=== PATIENT | male | born 1975 | race Caucasian/White ===

== ENCOUNTER 2024-08-26 08:56 | Emergency (ER) | payer OTHER, SELFPAY ==
--- NOTE | 2024-08-26 08:59 | ED.SKABFB ---
HPI - Skin/Abscess/Foreign Bdy General Chief complaint: Skin/Abscess/Foreign Body Stated complaint: rash Time Seen by Provider: 08/26/24 08:59 Source: patient Mode of arrival: ambulatory Limitations: no limitations History of Present Illness HPI narrative: Lion is a 49-year-old male patient presenting to the clinic today with complaints of a rash x5 days. He reports Thursday night he developed a painful rash to the left anglican and it has spread to the left chin/cheek. Area is painful/burning. Does have vesicular lesions. No visual changes. No rash or lesions noted around the eyes. Does report a headache and some dental pain from the rash. Related Data Home Medications ?Medication ?Instructions ?Recorded ?Confirmed ?Last Taken ?Type dapagliflozin propanediol 10 mg mg 08/26/24 Unknown History tablet (Farxiga) glipizide 10 mg tablet, extended mg PO 08/26/24 Unknown History release 24 hr losartan 100 tablet 08/26/24 Unknown History mg-hydrochlorothiazide 25 mg tablet metformin 500 mg tablet mg 08/26/24 Unknown History tirzepatide 2.5 mg/0.5 mL mg subcut 08/26/24 Unknown History subcutaneous pen injector (Mounjaro) Allergies Allergy/AdvReac Type Severity Reaction Status Date / Time No Known Allergies Allergy Verified 08/26/24 09:16 Review of Systems Review of Systems: Pertinent positives per HPI. Patient denies any fever, chills,headache, visual changes, dizziness, cough, runny nose, sore throat, shortness of breath, chest pain, palpitations, nausea, vomiting, diarrhea, constipation, abdominal pain, or any urinary issues. PMFSH Comments At the time of my signature, I reviewed and agree with the nursing past medical, surgical, social, and family history. There is no relevant family history pertinent to the patient complaint. Exam Narrative: General: Well-developed, well nourished, in no apparent distress Head: Normocephalic, atraumatic. Cardio: Regular rate and rhythm, s1 and s2 normal, no murmur appreciated. Resp: Clear to auscultation bilaterally, no rhonchi, rales, wheezing or rubs. Integumentary: [place], warm, and dry, intact without lesion, red erythematous base rash with vesicular lesions to the left temporal area as well as the left chin/cheek, no rash around the eyes. Area is tender to palpation. Course Course Emergency Course: Portions of this record may have been created with voice recognition software. Level of Care: Express Care Visit Vital Signs Vital signs: Vital Signs Temperature 37.1 C 08/26/24 09:12 Pulse Rate 91 08/26/24 09:12 Respiratory Rate 16 08/26/24 09:12 Blood Pressure 149/90 H 08/26/24 09:12 Pulse Oximetry 96 08/26/24 09:12 Oxygen Delivery Room Air 08/26/24 09:12 Temperature 37.1 C 08/26/24 09:12 Pulse Rate 91 08/26/24 09:12 Respiratory Rate 16 08/26/24 09:12 Blood Pressure 149/90 H 08/26/24 09:12 Pulse Oximetry 96 08/26/24 09:12 Oxygen Delivery Room Air 08/26/24 09:12 Vital signs reviewed MDM - Skin/Abscess/Foreign Bdy MDM Narrative Medical decision making narrative: At the time of visit patient is resting comfortably on the exam table. Patient appears to be nontoxic. Plan: I suspect patient has shingles. Prescription for acyclovir and lidocaine cream was sent to the pharmacy. Supportive measures were discussed with the patient and they voiced understanding discharge instructions and agrees to treatment plan. Return precautions reviewed Differential Diagnosis Differential diagnosis: Likely abscess of skin or subcutaneous tissue, viral exanthem, dermatophytosis, urticaria, herpes zoster, allergic reaction to drug, cellulitis, eczema, insect bites, impetigo and contact dermatitis Discharge Plan Discharge Clinical Impression: Herpes zoster Qualifiers: Herpes zoster complications: without complications Qualified Code(s): B02.9 - Zoster without complications Patient Disposition: Home, Self-Care Condition: Stable Instructions: Antibiotic Form, Shingles (ED) Additional Instructions: Take acyclovir as prescribed May apply lidocaine ointment to the affected area to help alleviate pain Shingles will be considered contagious until the area is crusted over Avoid being around any person's or any immunocompromised persons. May take Tylenol/ibuprofen as needed for pain Try to keep covered if draining Watch for signs and symptoms of infection-increase in redness, swelling, purulent discharge, fever, or streaking If this develops around your eyes or you have any visual changes you need to go to the emergency room immediately Follow-up with your primary care doctor in 3-5 days if symptoms persist or sooner if they worsen Patient Language: Turkish Prescriptions: New acyclovir 800 mg tablet 800 mg PO Q4H 7 Days Qty: 42 0RF Rx Instructions: while awake; give 5 doses in 24 hours lidocaine 5 % cream 1 applic topical QID PRN (Reason: pain) 7 Days Qty: 30 0RF No Action metformin 500 mg tablet glipizide 10 mg tablet extended release 24hr PO losartan-hydrochlorothiazide 100-25 mg tablet dapagliflozin propanediol [Farxiga] 10 mg tablet Mounjaro 2.5 mg/0.5 mL pen injector SUBCUT Follow-up/Referrals: Rosaura,Reinaldo Irvin M.D. [Primary Care Provider] - Time of Disposition: 09:21 Quality NIHSS Nursing Documentation ED NIHSS nursing documentation: reviewed/agree
[2024-08-26 09:12] VITALS: BP 149/90; PULSE 91; RESP 16; TEMP 37.1; O2SAT 96
--- OUTSIDE RECORDS SUMMARY | 2024-08-26 09:16 | XMS_ITS | Clinical Summary ---
Author Organization [facility] Address [address] [place] [address] Phone Care Team Providers Care Social Staff Worker Name Role Phone Nancy Cabezas Yun FLOOD Primary Care Provider Allergies No known active allergies Medications insulin glargine (LANTUS SOLOSTAR) 100 unit/mL solution for injection Inject 10 Units by subcutaneous injection daily. 15 mL 11 5 Active aspirin (ASPIRIN LOW DOSE) 81 mg Tablet, Delayed Release (E.C.) Take 1 Tab (81 mg) by mouth daily. 30 Tab 11 5 Active Active Problems Problem Noted Date Diagnosed Date Hyperlipidemia 08/11/2014 Diabetes mellitus type 2, un controlled, without complications 08/04/2014 Morbid obesity with BMI of 50.0-59.9, adult 030 09/2014 Family History Medical History Relation Name Comments Diabetes Father Heart Disease Maternal Grandfather CHF Stroke Maternal Grandfather Other Maternal Grandmother dementi a Stroke Maternal Grandmother TIA Other Mother epilepsy Other Paternal Grandfather scleros is Diabetes Paternal Grandmother pre-DM Other Paternal Grandmother emphyse ma, smoker Relation Name Status Comments Father Alive Maternal Grandfather Maternal Grandmother Mother Alive Paternal Grandfather Paternal Grandmother Social History Tobacco Use Types Packs/Day Years Used Date Smoking Tobacco: Former Smokeless Tobacco: Former Comments:very little use in past, social only Alcohol Use Standard Drinks/Week Comments Yes 0 (1 standard drink = 0.6 oz pur e alcohol) 0-10 weekly on heavy Sex and Gender Information Value Date Recorded Sex Assigned at Not on file Legal Sex Male 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 Gender Identity Not on file Sexual Orientation Not on file Last Filed Vital Signs Vital Sign Reading Time Taken Comments Blood Pressure 126/80 08/10/2014 2:34 PM CDT Pulse 76 08/10/2014 2:34 PM CDT Temperature - - Respiratory Rate - - Oxygen Saturation 97% 08/10/2014 2:34 PM CDT Inhaled Oxygen Concentration - - Weight 154.7 kg (341 lb) 10/11/2014 5:21 PM CDT Height 167.6 cm (5' 6 ) 10/11/2014 5:21 PM CDT Body Mass Index 55.04 10/11/2014 5:21 PM CDT Plan of Treatment Health Maintenance Due Date Last Done Comments DTAP/TDAP/TD VACCINES (1 - Tdap) 1993 HEPATITIS B VACCINES (1 of 3 - 19+ 3-dose series) 1993 Pre-Diabetes and Diabetes Screening 08/03/2017 08/03/2014 COLORECTAL SCREENING 2019 Colorectal Cancer Screening 2019 FIT-DNA Q 3 years 2019 FIT/FOBT Q 1 year 2019 Flex Sig/CT Colonography Q 5 years 2019 INFLUENZA VACCINE (#1) 2023 ZOSTER VACCINE (1 of 2) 2024 Preventative Visit- Commercial 06/01/2024 08/03/2014 PNEUMOCOCCAL VACCINE 0-49 YEARS Aged Out No longer eligible based on patient's age to complete this topic Procedures Procedure Name Priority Date/Time Associated Diagnosis Comments HEMOGLOBIN A1C Routine 08/03/2014 4:18 PM TRADE SPECIALIST Morbid obesity with BMI of 50.0-59.9, adult ([facility]) Elevated glucose from Last 3 Months or Most Recently Relevant to Health Maintenance Results * (ABNORMAL) HEMOGLOBIN A1C (08/03/2014 4:18 PM TRADE SPECIALIST) HEMOGLOBIN A1C 12.0(H) 4.1 - 6.1 % of Hgb [facility] EST. AVG GLUCOSE, A1C 298 mg/dL [facility] Comment:Based on the ADAG st udy equation. Blood 08/03/2014 4:18 PM TRADE SPECIALIST 08/03/2014 11:02 PM TRADE SPECIALIST Nancy Cabezas DO CHEMISTRY ORDERABLES Final Result [facility]# [id number] [address] [place] [address] from Last 3 Months or Most Recently Relevant to Health Maintenance Insurance [facility] [id number] Care Teams Social Staff Worker Relationship Specialty [place] [id number] [facility] [address] [place] [id number] PCP - General Family Practice 08/03/14
--- OUTSIDE RECORDS SUMMARY | 2024-08-26 09:16 | XMS_ITS ---
Author Organization [facility] Address [address] [place], [place] [id number] Care Team Providers Care Assistant Maintenance Manager Name Role Phone GLORIA ROWE Primary Care Provider REASON FOR VISIT Mounjaro problems Encounters Encounter Location Date Provider Diagnosis [facility] [address] [place], [place] [id number] 08/10/2024 GLORIA ROWE Plan Of Treatment Next Appt Details Provider Name:GLORIA Negron, 10/14/2024 08:15:00 AM, [address], [address], [place], [place], [id number], Progress Notes * Lion SEQUEIRADOB: [birth year] (49 yo M)Acc No.[id number]:08/10/2024 Patient: Lion BEE :1975 A ge:49 Y S ex:Male Address:[address] [place] [address] * true * Date: Generated for Printi ng/Faxing/eTransmitting on: 0 08/26/2024 09:16 AM CDT
--- OUTSIDE RECORDS SUMMARY | 2024-08-26 09:16 | XMS_ITS ---
Author Organization [facility] Address [address] [facility] [address] [place], [place] [id number] Care Team Providers Care Director Of Emergency Nursing Name Role Phone GLORIA ROWE Primary Care Provider [phone] Encounters Encounter Location Date Provider Diagnosis [place] [id number] [place], [place] [phone] 04/04/2024 GLORIA ROWE Plan Of Treatment Next Appt Details Provider Name:GLORIA Negron, 10/14/2024 08:15:00 AM, [address], [address], [place], [place], [phone], Progress Notes * Lion SEQUEIRADOB: 4 (48 yo M)Acc No.[id number]:04/04/2024 Patient: Lion BEE :1975 A ge:48 Y S ex:Male Address:[address] [place] [address] * true * Date: Generated for Printi ng/Faxing/eTransmitting on: 0 08/26/2024 09:16 AM CDT
--- OUTSIDE RECORDS SUMMARY | 2024-08-26 09:16 | XMS_ITS ---
Author Organization [facility] Address [address] [facility] [address] [place], [place] [id number] Care Team Providers Care Camp Dishwasher Name Role Phone GLORIA KAPLAN Primary Care Provider [phone] Allergies No Known Allergies REASON FOR VISIT 3 month and yearly physical Medications Medication SIG (Take, Route, Frequency, Duration) Notes Start Date End Date Status Losartan Potassium-HCTZ 100-25 MG TAKE 1 TABLET BY MOUTH EVERY DAY FOR 30 DAYS for 90 Active Dapagliflozin Propanediol 10 MG 1 tablet Orally Once a day for 90 days 11/30/2023 08/06/2024 Active Mounjaro 2.5 MG/0.5ML 2.5 mg Subcutaneou s weekly for 30 days 07/15/2024 10/13/2024 Active glipiZIDE ER 10 MG TAKE 1 TABLET BY KVNG TH EVERY DAY WITH BREAKFAST for 90 Active Rosuvastatin Calcium 20 MG TAKE 1 TABLET BY MOUTH EVERY DAY for 90 Active Social History AUDIT-C (Standard) Question Answer Notes Did you have a drink contain ing alcohol in the past year? Yes How often did you have six o r more drinks on one occasion in the past year? Less than monthly (1 point) How many drinks did you have on a typical day when you were drinking in the past year? 3 or 4 drinks (1 point) How often did you have a dri nk containing alcohol in the past year? 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 He has stable housing and a vehicle. He denies tobacco, alcohol, or illicit drug use. Vital Signs Temperature 97.3 degrees Fahrenheit 07/15/19 25 Blood pressure systolic 130 mm Hg 07/15/19 25 Blood pressure diastolic 90 mm Hg 025 Heart Rate 89 /min 07/15/2024 Respiratory Rate 20 /min 07/15/2024 Height 66 in 07/15/2024 Weight 272.8 lbs 07/15/2024 BMI 44.03 kg/m2 07/15/2024 Oximetry 95 % 07/15/2024 Height-cm 167.64 cm 07/15/2024 Weight-kg 123.74 kg 07/15/2024 Encounters Encounter Location Date Provider Diagnosis [facility] [address] [facility] [address] [place], [place] [phone] 07/15/2024 [facility] Annual physical exam Z00.00 ; Type 2 diabetes mellitus without complication, without long-term current use of insulin E11.9 ; Essential (primary) hypertension I10 ; Mixed hyperlipidemia E78.2 and Morbid (severe) obesity due to excess calories E66.01 Assessments Encounter Date Diagnosis (ICD Code) Assessment Notes Treatment Notes Treatment Clinical Notes Section Notes 07/15/2024 Annual physical exam (ICD-10 - Z00.00) The patient will continue the current therapy and is advised on compliance. The patient is advised on improved low calorie, low carbohydrate diet, and exercise with the goal of weight loss, blood pressure improvement, cholesterol improvement, and blood sugar improvement. Will check CBC, BMP, LFTs, Lipid panel, TFTs, and PSA. 07/15/2024 Type 2 diabetes mellitus without complication, without long-term current use of insulin (ICD-10 - E11.9) As above. His diabetes remains poorly controlled and he was intolerant of metformin and ozempic. He will try mounjaro with a slow uptitration of doses. Will check a HgbA1c and urine microalbumin. 07/15/2024 Essential (primary) hypertension (ICD-10 - I10) His blood pressure remains slightly elevated. He will continue the current therapy and is advised on compliance. He is offered and declined intensification of therapy. He is advised on weight loss and exercise. 07/15/2024 Mixed hyperlipidemia (ICD-10 - E78.2) As above. Will check a lipid panel. 07/15/2024 Morbid (severe) obesity due to excess calories (ICD-10 - E66.01) As above. Plan Of Treatment Medication Medication Name Sig Start Date Stop Date Notes Mounjaro 2.5 MG/0.5ML 2.5 mg Subcutaneou s weekly for 30 days 07/15/2024 10/13/2024 Treatment Notes Assessment Notes Annual physical exam The patient will co ntinue the current therapy and is advised on compliance. The patient is advised on improved low calorie, low carbohydrate diet, and exercise with the goal of weight loss, blood pressure improvement, cholesterol improvement, and blood sugar improvement. Will check CBC, BMP, LFTs, Lipid panel, TFTs, and PSA. Type 2 diabetes mellitus wit hout complication, without long-term current use of insulin As above. His diabetes remains poorly controlled and he was intolerant of metformin and ozempic. He will try mounjaro with a slow uptitration of doses. Will check a HgbA1c and urine microalbumin. Essential (primary) hypertension His blo od pressure remains slightly elevated. He will continue the current therapy and is advised on compliance. He is offered and declined intensification of therapy. He is advised on weight loss and exercise. Mixed hyperlipidemia As above. Will chec k a lipid panel. Morbid (severe) obesity due to excess calories As above. Next Appt Details Follow Up: 3 Months, Reason: Provider Name:GLORIA Negron, 10/14/2024 08:15:00 AM, [address] , [place] [address], [place], [place], [id number], Progress Notes * Lion SEQUEIRADOB: [birth year] (49 yo M)Acc No.[id number]:07/15/2024 Progress Notes Patient: Lion BEE Provider: Enoc Kaplan M.D. :1975 A ge:49 Y S ex:Male Date:07/15/2024 Address:[facility] [id number] Subjective: * Chief Complaints: * 3 month and yearly physical * HPI: R outine: Mr. Sequeira is a 49 year old gentleman who presents for a routine follow up. He reports compliance with losartan/hct 100/25 mg daily without side effects. His blood pressure remains improved/borderline elevated today and he does not check it at home. He has diabetes mellitus and his last HgbA1c worsened from 8.0 to 9.7 off O zempic. He has tried and s topped the Ozempic and the metformin due to nausea and diarrhea. He is trying to improve his diet and exercise and his weight is up another 5 pounds. He does not check his blood sugars at home. His last cholesterol level was normal on the c restor and is tolerating it without side effects. * ROS: G en: Good health, No sleep Problems, No fever, 5 pound weight gain, No Fatigue Skin: No rash, No itching HEENT: No headaches, No sinus congestion, No sore throat, No allergies, No hearing changes, No vision changes Respiratory: No cough, No SOB, No wheezing Cardiology: No chest pain, No palpitations, No lower extremity edema, No dizziness GI: No abdominal pain, No nausea, No diarrhea, No blood in the stools, No heartburn : No urinary frequency, No discharge, No dysuria, No hematuria Heme: No abnormal bleeding, No easy bruising, No swollen glands Musculoskeletal: Positive arthritis, No weakness Psych: No anxiety, No depression Colonoscopy: 07/16/23 - Negative with the plan to repeat after 10 years. * Medical History: * Surgical History: C ryptorchisism s/p repair * Hospitalization/Major Diagno stic Procedure: * Family History: F ather: . M other: , diagnosed with Other malignant neoplasm without specification of site. Mother with CVA. Father with CVA and nephrolithiasis. * Social History: D rug/Alcohol: A UMU-C (Standard) D id you have a drink containing alcohol in the past year? Y es H ow often did you have six or more drinks on one occasion in the past year? L ess than monthly (1 point) H ow many drinks did you have on a typical day when you were drinking in the past year? 3 or 4 drinks (1 point) H ow often did you have a drink containing alcohol in the past year? 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 He has stable housing and a vehicle. He denies tobacco, alcohol, or illicit drug use. * Medications: T akingLosartan Potassium-HCTZ 100-25 MG Tablet TAKE 1 TABLET BY MOUTH EVERY DAY FOR 30 DAYS Dapagliflozin Propanediol 10 MG Tablet 1 tablet Orally Once a day , stop date 08/06/2024glipiZIDE ER 10 MG Tablet Extended Release 24 Hour TAKE 1 TABLET BY MOUTH EVERY DAY WITH BREAKFAST Rosuvastatin Calcium 20 MG Tablet TAKE 1 TABLET BY MOUTH EVERY DAY Medication List reviewed and reconciled with the patientTaking Losartan Potassium-HCTZ 100-25 MG Tablet TAKE 1 TABLET BY MOUTH EVERY DAY FOR 30 DAYS Taking Dapagliflozin Propanediol 10 MG Tablet 1 tablet Orally Once a day , stop date 08/06/2024Taking glipiZIDE ER 10 MG Tablet Extended Release 24 Hour TAKE 1 TABLET BY MOUTH EVERY DAY WITH BREAKFAST Taking Rosuvastatin Calcium 20 MG Tablet TAKE 1 TABLET BY MOUTH EVERY DAY Medication List reviewed and reconciled with the patient * Allergies: N .K.D.A.no[Allergies Verified] Objective: * Vitals: B P:130/90mm Hg, HR:89/min, RR:20/min, Temp:97.3F, Oxygen sat %:95%, Wt:272.8lbs, Wt-k.74 kg, Ht: 66 in, Ht-cm: 167.64 cm, BMI:44.03Index, Body Surface Area: 2.4. * Physical Examination: G en: Well nourished, morbid obesity in NAD. Skin: No rash. HEENT: Narrowed posterior pharynx, IS ARCHITECT patent, PERRL, Conjunctiva pink, Sclera anicteric, MMM, No thrush, Good dentition. Neck: Thick, Supple, No LAD, No thyromegaly, No carotid bruits. Chest: CTA bilaterally without wheezes. CV: RRR without murmur. Abdomen: Soft, NT, ND, active BS, No HSM. . Not performed. Extremity: No cyanosis, clubbing, or edema. 2+ radial/DP pulses bilaterally. Neuro: Gait normal, A&O x 4, CN 2-12 intact bilaterally, Reflexes 2+ brachial and patellar, Motor 5/5 throughout, Sensory normal grossly. Assessment: * Assessment: 1. A nnual physical exam - Z00.00 (Primary) 2 . T ype 2 diabetes mellitus without complication, without long-term current use of insulin - E11.9 3 . E ssential (primary) hypertension - I10 4 . M ixed hyperlipidemia - E78.2 5. M orbid (severe) obesity due to excess calories - E66.01 Plan: * Treatment: 2. T ype 2 diabetes mellitus without complication, without long-term current use of insulin Start Mounjaro Solution Auto-injector, 2.5 MG/0.5ML, 2.5 mg, Subcutaneous, weekly, 30 days, 2, Refills 2. Notes: As above. His diabetes remains poorly controlled and he was intolerant of metformin and ozempic. He will try mounjaro with a slow uptitration of doses. Will check a HgbA1c and urine microalbumin. 3. E ssential (primary) hypertension Notes: His blood pressure remains slightly elevated. He will continue the current therapy and is advised on compliance. He is offered and declined intensification of therapy. He is advised on weight loss and exercise. 4. M ixed hyperlipidemia Notes: As above. Will check a lipid panel. 5. M orbid (severe) obesity due to excess calories Notes: As above. * Procedure Codes: * Follow Up: 3 Months * Billing Information: * Visit Code: 22431 Office Visit, Est Pt., Level 4. 61618 Preventive Care Est Pt. Age 40-64. * Procedure Codes: * ESSIONAL BONDSMAN Sign off status: Completed true * Provider: Enoc Kaplan M.D. Date: 07/15/2024 Generated for Domenico virk/Stuart/Nicitting on: 0 08/26/2024 09:15 AM CDT History and Physical Notes * Physical Examination Category Sub-Category Detail Notes Section Note s Gen: Well aashish shed, morbid obesity in NAD. Skin: No rash. HEENT: Narrowed posterior pharynx, IS ARCHITECT patent, PERRL, Conjunctiva pink, Sclera anicteric, MMM, No thrush, Good dentition. Neck: Thick, Supple, No LAD, No thyromegaly, No carotid bruits. Chest: CTA bilaterally without wheezes. CV: RRR without murmur. Abdomen: Soft, NT, ND, active BS, No HSM. . Not performed. Extremity: No cyanosis, clubbing, or edema. 2+ radial/DP pulses bilaterally. Neuro: Gait normal, A&O x 4, CN 2-12 intact bilaterally, Reflexes 2+ brachial and patellar, Motor 5/5 throughout, Sensory normal grossly.
--- OUTSIDE RECORDS SUMMARY | 2024-08-26 09:16 | XMS_ITS | Patient Health Record ---
Author Organization [facility] Address [address] [place], [place] [id number] Care Team Providers Care [employer] Name Role Phone GLORIA ROWE Primary Care Provider [phone] Allergies No Known Allergies Results Component Value Reference Range Notes LIPID PANEL, STANDARD ([id number]) Reviewed date:12/25/2023 07:12:06 AM Interpretation: Performing Lab:CHAVEZ LOC [facility] HospitalOzmtz[address] [facility] HospitalQajvkypOR[address] [facility] Notes/Report: FASTING:UNKNOWN FASTING: UNKNOWN CHOLESTEROL, TOTAL 134 <200 mg/dL HDL CHOLESTEROL 47 > OR = 40 mg/dL TRIGLYCERIDES 100 <150 mg/dL LDL-CHOLESTEROL 68 Reference range: <100 Desirable range <100 mg/dL for primary prevention; <70 mg/dL for patients with CHD or diabetic patients with > or = 2 CHD risk factors. LDL-C is now calculated using the Kirk-Mario calculation, which is a validated novel method providing better accuracy than the Friedewald equation in the estimation of LDL-C. Kirk ALMENDAREZ et al. LAMIN. 2013;310(19): 0725-5859 (http://education.[employer].com/faq/HRH988) CHOL/HDLC RATIO 2.9 <5.0 (calc) NON HDL CHOLESTEROL 87 <130 mg/dL (calc) For patients with diabetes plus 1 major ASCVD risk factor, treating to a non-HDL-C goal of <100 mg/dL (LDL-C of <70 mg/dL) is considered a therapeutic option. COMPREHENSIVE METABOLIC LOUIS Choudhary ([id number]) Reviewed date:12/25/2023 07:12:11 AM Interpretation: Performing Lab:CHAVEZ LOC [place] [address] [address] Jovan Castro [address] Notes/Report: FASTING:UNKNOWN FASTING: UNKNOWN GLUCOSE 127 65-99 mg/dL Fasting reference interval For someone without known diabetes, a glucose value >125 mg/dL indicates that they may have diabetes and this should be confirmed with a follow-up test. UREA NITROGEN (BUN) 15 7-25 mg/dL CREATININE 1.07 0.60-1.29 mg/dL EGFR 85 > OR = 60 mL/min/1.73m2 BUN/CREATININE RATIO SEE NOTE: 6-22 (calc) Not Reported: BUN and Creatinine are within reference range. SODIUM 140 135-146 mmol/L POTASSIUM 3.9 3.5-5.3 mmol/L CHLORIDE 102 98-110 mmol/L CARBON DIOXIDE 30 20-32 mmol/L CALCIUM 10.2 8.6-10.3 mg/dL PROTEIN, TOTAL 7.1 6.1-8.1 g/dL ALBUMIN 4.8 3.6-5.1 g/dL GLOBULIN 2.3 1.9-3.7 g/dL (calc) ALBUMIN/GLOBULIN RATIO 2.1 1.0-2.5 (calc) BILIRUBIN, TOTAL 0.8 0.2-1.2 mg/dL ALKALINE PHOSPHATASE 49 36-130 U/L AST 24 10-40 U/L ALT 27 9-46 U/L CBC (INCLUDES DIFF/PLT) (639 9) Reviewed date:12/25/2023 07:11:59 AM Interpretation: Performing Lab:CHAVEZ LOC [place] [address] [address] Jovan Castro YhyjgihSA[address] [facility] Notes/Report: FASTING:UNKNOWN FASTING: UNKNOWN WHITE BLOOD CELL COUNT 7.3 3.8-10.8 Thousand/ uL RED BLOOD CELL COUNT 5.04 4.20-5.80 Million/uL HEMOGLOBIN 15.3 13.2-17.1 g/dL HEMATOCRIT 47.3 38.5-50.0 % MCV 93.8 80.0-100.0 fL MCH 30.4 27.0-33.0 pg MCHC 32.3 32.0-36.0 g/dL RDW 12.9 11.0-15.0 % PLATELET COUNT 222 140-400 Thousand/uL MPV 11.1 7.5-12.5 fL ABSOLUTE NEUTROPHILS 3110 6600-3622 cells/uL ABSOLUTE LYMPHOCYTES 2168 850-3900 cells/uL ABSOLUTE MONOCYTES 591 200-950 cells/uL ABSOLUTE EOSINOPHILS 1351 15-500 cells/uL ABSOLUTE BASOPHILS 80 0-200 cells/uL NEUTROPHILS 42.6 LYMPHOCYTES 29.7 MONOCYTES 8.1 EOSINOPHILS 18.5 BASOPHILS 1.1 HEMOGLOBIN A1c (496) Reviewed date:12/25/2023 07:11:54 AM Interpretation: Performing Lab:CHAVEZ LOC [place] [address] [address] Jovan Castro LtnohvtES[address] Cecilio Brooks Notes/Report: FASTING:UNKNOWN FASTING: UNKNOWN HEMOGLOBIN A1c 8.0 <5.7 % of total Hgb For someone without known diabetes, a hemoglobin A1c value of 6.5% or greater indicates that they may have diabetes and this should be confirmed with a follow-up test. For someone with known diabetes, a value <7% indicates that their diabetes is well controlled and a value greater than or equal to 7% indicates suboptimal control. A1c targets should be individualized based on duration of diabetes, age, comorbid conditions, and other considerations. Currently, no consensus exists regarding use of hemoglobin A1c for diagnosis of diabetes for children. This test was performed on the Nevin phil c503 platform. Effective 08/17/23, a change in test platforms from the [employer] to the Nevin phil c503 may have shifted HbA1c results compared to historical results. Based on laboratory validation testing conducted at [employer], the Nevin platform relative to the [employer] platform had an average increase in HbA1c value of < or = 0.3%. This difference is within accepted variability established by the National Glycohemoglobin Standardization Program. Note that not all individuals will have had a shift in their results and direct comparisons between historical and current results for testing conducted on different platforms is not recommended. LIPID PANEL, STANDARD ([id number]) Reviewed date:09/25/2023 07:27:45 AM Interpretation: Performing Lab:CHAVEZ LOC [place] [address] [address] Jovan Castro XfyjmmvPC[address] Cecilio York Notes/Report: FASTING:UNKNOWN FASTING: UNKNOWN CHOLESTEROL, TOTAL 142 <200 mg/dL HDL CHOLESTEROL 50 > OR = 40 mg/dL TRIGLYCERIDES 110 <150 mg/dL LDL-CHOLESTEROL 72 Reference range: <100 Desirable range <100 mg/dL for primary prevention; <70 mg/dL for patients with CHD or diabetic patients with > or = 2 CHD risk factors. LDL-C is now calculated using the Edyta calculation, which is a validated novel method providing better accuracy than the Friedewald equation in the estimation of LDL-C. Kirk ALMENDAREZ et al. LAMIN. 2013;310(19): 9226-7877 (http://education.[employer]/faq/PLR121) CHOL/HDLC RATIO 2.8 <5.0 (calc) NON HDL CHOLESTEROL 92 <130 mg/dL (calc) For patients with diabetes plus 1 major ASCVD risk factor, treating to a non-HDL-C goal of <100 mg/dL (LDL-C of <70 mg/dL) is considered a therapeutic option. COMPREHENSIVE METABOLIC PANYun Kenrick ([id number]) Reviewed date:09/25/2023 07:26:54 AM Interpretation: Performing Lab:HCAVEZ LOC [place] [address] [place] [address] [facility] Notes/Report: FASTING:UNKNOWN FASTING: UNKNOWN GLUCOSE 270 65-99 mg/dL Fasting reference interval For someone without known diabetes, a glucose value >125 mg/dL indicates that they may have diabetes and this should be confirmed with a follow-up test. UREA NITROGEN (BUN) 13 7-25 mg/dL CREATININE 0.98 0.60-1.29 mg/dL EGFR 95 > OR = 60 mL/min/1.73m2 BUN/CREATININE RATIO SEE NOTE: 6-22 (calc) Not Reported: BUN and Creatinine are within reference range. SODIUM 139 135-146 mmol/L POTASSIUM 4.1 3.5-5.3 mmol/L CHLORIDE 99 98-110 mmol/L CARBON DIOXIDE 30 20-32 mmol/L CALCIUM 10.0 8.6-10.3 mg/dL PROTEIN, TOTAL 6.8 6.1-8.1 g/dL ALBUMIN 4.5 3.6-5.1 g/dL GLOBULIN 2.3 1.9-3.7 g/dL (calc) ALBUMIN/GLOBULIN RATIO 2.0 1.0-2.5 (calc) BILIRUBIN, TOTAL 0.7 0.2-1.2 mg/dL ALKALINE PHOSPHATASE 55 36-130 U/L AST 14 10-40 U/L ALT 25 9-46 U/L CBC (INCLUDES DIFF/PLT) (639 9) Reviewed date:09/25/2023 07:24:03 AM Interpretation: Performing Lab:CHAVEZ LOC [place] [address] [address] Jovan Castro AfcttkyNU[address] [facility] Notes/Report: FASTING:UNKNOWN FASTING: UNKNOWN WHITE BLOOD CELL COUNT 6.1 3.8-10.8 Thousand/ uL RED BLOOD CELL COUNT 4.86 4.20-5.80 Million/uL HEMOGLOBIN 15.1 13.2-17.1 g/dL HEMATOCRIT 44.8 38.5-50.0 % MCV 92.2 80.0-100.0 fL MCH 31.1 27.0-33.0 pg MCHC 33.7 32.0-36.0 g/dL RDW 12.6 11.0-15.0 % PLATELET COUNT 218 140-400 Thousand/uL MPV 11.6 7.5-12.5 fL ABSOLUTE NEUTROPHILS 3447 8594-7835 cells/uL ABSOLUTE LYMPHOCYTES 2019 850-3900 cells/uL ABSOLUTE MONOCYTES 482 200-950 cells/uL ABSOLUTE EOSINOPHILS 110 15-500 cells/uL ABSOLUTE BASOPHILS 43 0-200 cells/uL NEUTROPHILS 56.5 LYMPHOCYTES 33.1 MONOCYTES 7.9 EOSINOPHILS 1.8 BASOPHILS 0.7 HEMOGLOBIN A1c (496) Reviewed date:09/25/2023 09:18:13 AM Interpretation: Performing Lab:CHAVEZ LOC [place] [address] [address] Jovan Castro KvonnchSM[address] [facility] Notes/Report: FASTING:UNKNOWN FASTING: UNKNOWN HEMOGLOBIN A1c 11.0 <5.7 % of total Hgb For someone without known diabetes, a hemoglobin A1c value of 6.5% or greater indicates that they may have diabetes and this should be confirmed with a follow-up test. For someone with known diabetes, a value <7% indicates that their diabetes is well controlled and a value greater than or equal to 7% indicates suboptimal control. A1c targets should be individualized based on duration of diabetes, age, comorbid conditions, and other considerations. Currently, no consensus exists regarding use of hemoglobin A1c for diagnosis of diabetes for children. This test was performed on the [employer] c503 platform. Effective 08/17/23, a change in test platforms from the [employer] to the Nevin phil c503 may have shifted HbA1c results compared to historical results. Based on laboratory validation testing conducted at [employer], the Nevin platform relative to the [employer] platform had an average increase in HbA1c value of < or = 0.3%. This difference is within accepted variability established by the National Glycohemoglobin Standardization Program. Note that not all individuals will have had a shift in their results and direct comparisons between historical and current results for testing conducted on different platforms is not recommended. LIPID PANEL, STANDARD ([id number]) Reviewed date:04/03/2024 02:56:29 PM Interpretation: Performing Lab:KEN LOC Enterprises-Aldhhr07604 Bartolo Champion, RyfflzXB[address] Cecilio Brooks MD Notes/Report: CHOLESTEROL, TOTAL 156 <200 mg/dL HDL CHOLESTEROL 56 > OR = 40 mg/dL TRIGLYCERIDES 131 <150 mg/dL LDL-CHOLESTEROL 77 Reference range: <100 Desirable range <100 mg/dL for primary prevention; <70 mg/dL for patients with CHD or diabetic patients with > or = 2 CHD risk factors. LDL-C is now calculated using the Kirk-Martin calculation, which is a validated novel method providing better accuracy than the Friedewald equation in the estimation of LDL-C. Kirk SS et al. LAMIN. 2013;310(10): 2331-3074 (http://education.[employer]/faq/DKB630) CHOL/HDLC RATIO 2.8 <5.0 (calc) NON HDL CHOLESTEROL 100 <130 mg/dL (calc) For patients with diabetes plus 1 major ASCVD risk factor, treating to a non-HDL-C goal of <100 mg/dL (LDL-C of <70 mg/dL) is considered a therapeutic option. COMPREHENSIVE METABOLIC PANE L ([id number]) Reviewed date:04/03/2024 02:56:25 PM Interpretation: Performing Lab:KEN [employer] Tiffanie-[id number] Bartolo Champion KjvshxRR[address] Cecilio Brooks MD Notes/Report: GLUCOSE 142 65-99 mg/dL Fasting reference interval For someone without known diabetes, a glucose value >125 mg/dL indicates that they may have diabetes and this should be confirmed with a follow-up test. UREA NITROGEN (BUN) 15 7-25 mg/dL CREATININE 0.89 0.60-1.29 mg/dL EGFR 105 > OR = 60 mL/min/1.73m2 BUN/CREATININE RATIO SEE NOTE: 6-22 (calc) Not Reported: BUN and Creatinine are within reference range. SODIUM 140 135-146 mmol/L POTASSIUM 4.0 3.5-5.3 mmol/L CHLORIDE 100 98-110 mmol/L CARBON DIOXIDE 31 20-32 mmol/L CALCIUM 9.7 8.6-10.3 mg/dL PROTEIN, TOTAL 6.9 6.1-8.1 g/dL ALBUMIN 4.5 3.6-5.1 g/dL GLOBULIN 2.4 1.9-3.7 g/dL (calc) ALBUMIN/GLOBULIN RATIO 1.9 1.0-2.5 (calc) BILIRUBIN, TOTAL 0.6 0.2-1.2 mg/dL ALKALINE PHOSPHATASE 52 36-130 U/L AST 16 10-40 U/L ALT 26 9-46 U/L CBC (INCLUDES DIFF/PLT) (639 9) Reviewed date:04/02/2024 05:37:17 PM Interpretation: Performing Lab:KEN LOC Enterprises-[id number] Bartolo [facility], FeelxjMF[address] Cecilio Brooks MD Notes/Report: WHITE BLOOD CELL COUNT 5.4 3.8-10.8 Thousand/ uL RED BLOOD CELL COUNT 5.30 4.20-5.80 Million/uL HEMOGLOBIN 16.0 13.2-17.1 g/dL HEMATOCRIT 48.7 38.5-50.0 % MCV 91.9 80.0-100.0 fL MCH 30.2 27.0-33.0 pg MCHC 32.9 32.0-36.0 g/dL For adults, a slight decrease in the calculated MCHC value (in the range of 30 to 32 g/dL) is most likely not clinically significant; however, it should be interpreted with caution in correlation with other red cell parameters and the patient's clinical condition. RDW 12.3 11.0-15.0 % PLATELET COUNT 219 140-400 Thousand/uL MPV 11.6 7.5-12.5 fL ABSOLUTE NEUTROPHILS 2905 8149-3020 cells/uL ABSOLUTE LYMPHOCYTES 9684 250-1811 cells/uL ABSOLUTE MONOCYTES 470 200-950 cells/uL ABSOLUTE EOSINOPHILS 130 15-500 cells/uL ABSOLUTE BASOPHILS 49 0-200 cells/uL NEUTROPHILS 53.8 LYMPHOCYTES 34.2 MONOCYTES 8.7 EOSINOPHILS 2.4 BASOPHILS 0.9 HEMOGLOBIN A1c (496) Reviewed date:04/04/2024 08:24:22 AM Interpretation: Performing Lab:Jax ROGERSKjvtfj84066 Benedicto VidesLstwaoTN[address] Cecilio Brooks MD Notes/Report: HEMOGLOBIN A1c 9.7 <5.7 % of total Hgb For someone without known diabetes, a hemoglobin A1c value of 6.5% or greater indicates that they may have diabetes and this should be confirmed with a follow-up test. For someone with known diabetes, a value <7% indicates that their diabetes is well controlled and a value greater than or equal to 7% indicates suboptimal control. A1c targets should be individualized based on duration of diabetes, age, comorbid conditions, and other considerations. Currently, no consensus exists regarding use of hemoglobin A1c for diagnosis of diabetes for children. HEMOGLOBIN A1c (496) Reviewed date:07/17/2024 12:09:36 PM Interpretation: Performing Lab:Jax ROGERSZiqkhj39349 Benedicto VidesXgivsaLU[address] Cecilio Brooks MD Notes/Report: FASTING:YES FASTING: YES HEMOGLOBIN A1c 9.7 <5.7 % of total Hgb For someone without known diabetes, a hemoglobin A1c value of 6.5% or greater indicates that they may have diabetes and this should be confirmed with a follow-up test. For someone with known diabetes, a value <7% indicates that their diabetes is well controlled and a value greater than or equal to 7% indicates suboptimal control. A1c targets should be individualized based on duration of diabetes, age, comorbid conditions, and other considerations. Currently, no consensus exists regarding use of hemoglobin A1c for diagnosis of diabetes for children. PSA, TOTAL (5363) Reviewed date:07/17/2024 12:10:40 PM Interpretation: Performing Lab:Jax ROGERSexa10101 Bartolo Champion BasenvUZ[address] Cecilio Brooks MD Notes/Report: FASTING:YES FASTING: YES PSA, TOTAL 0.37 < OR = 4.00 ng/mL The total PSA value from this assay system is standardized against the WHO standard. The test result will be approximately 20% lower when compared to the equimolar-standardized total PSA (Clara Obinna). Comparison of serial PSA results should be interpreted with this fact in mind. This test was performed using the Siemens chemiluminescent method. Values obtained from different assay methods cannot be used interchangeably. PSA levels, regardless of value, should not be interpreted as absolute evidence of the presence or absence of disease. TSH W/REFLEX TO FT4 (21034) Reviewed date:07/17/2024 12:03:38 PM Interpretation: Performing Lab:Jax ROGERS-Ddrnri01080 Bartolo Champion, PaslvkBA[address] Cecilio Brooks MD Notes/Report: FASTING:YES FASTING: YES TSH W/REFLEX TO FT4 2.56 0.40-4.50 mIU/L ALBUMIN, RANDOM URINE W/CREA TININE (6517) Reviewed date:07/17/2024 12:10:06 PM Interpretation: Performing Lab:Jax ROGERS-Sbrckd98345Perry Champion, PamcpvHP[address] Cecilio Brooks MD Notes/Report: FASTING:YES FASTING: YES CREATININE, RANDOM URINE 64 20-320 mg/dL ALBUMIN, URINE 0.7 See Note: mg/dL Reference Range: Reference Range Not established ALBUMIN/CREATININE RATIO, RANDOM URINE 11 <30 mg/g creat The ADA defines abnormalities in albumin excretion as follows: Albuminuria Category Result (mg/g creatinine) Normal to Mildly increased <30 Moderately increased 30-299 Severely increased > OR = 300 The ADA recommends that at least two of three specimens collected within a 3-6 month period be abnormal before considering a patient to be within a diagnostic category. LIPID PANEL, STANDARD (7600) Reviewed date:07/17/2024 12:02:43 PM Interpretation: Performing Lab:Jax ROGERS-Hjdfbp03972 Bartolo Champion, XnlpveEH[address] Cecilio Brooks MD Notes/Report: FASTING:YES FASTING: YES CHOLESTEROL, TOTAL 158 <200 mg/dL HDL CHOLESTEROL 54 > OR = 40 mg/dL TRIGLYCERIDES 114 <150 mg/dL LDL-CHOLESTEROL 83 Reference range: <100 Desirable range <100 mg/dL for primary prevention; <70 mg/dL for patients with CHD or diabetic patients with > or = 2 CHD risk factors. LDL-C is now calculated using the Kirk-Martin calculation, which is a validated novel method providing better accuracy than the Friedewald equation in the estimation of LDL-C. Kirk SS et al. LAMIN. 2013;310(19): 9913-1709 (http://[employer]/faq/LPO117) CHOL/HDLC RATIO 2.9 <5.0 (calc) NON HDL CHOLESTEROL 104 <130 mg/dL (calc) For patients with diabetes plus 1 major ASCVD risk factor, treating to a non-HDL-C goal of <100 mg/dL (LDL-C of <70 mg/dL) is considered a therapeutic option. COMPREHENSIVE METABOLIC PANE L ([id number]) Reviewed date:07/17/2024 12:00:53 PM Interpretation: Performing Lab:KEN LOC Enterprises-[id number] Bartolo Champion, BcupmqPR[address] Cecilio Brooks MD Notes/Report: FASTING:YES FASTING: YES GLUCOSE 148 65-99 mg/dL Fasting reference interval For someone without known diabetes, a glucose value >125 mg/dL indicates that they may have diabetes and this should be confirmed with a follow-up test. UREA NITROGEN (BUN) 19 7-25 mg/dL CREATININE 0.91 0.70-1.30 mg/dL EGFR 103 > OR = 60 mL/min/1.73m2 BUN/CREATININE RATIO SEE NOTE: 6-22 (calc) Not Reported: BUN and Creatinine are within reference range. SODIUM 139 135-146 mmol/L POTASSIUM 4.1 3.5-5.3 mmol/L CHLORIDE 100 98-110 mmol/L CARBON DIOXIDE 27 20-32 mmol/L CALCIUM 10.0 8.6-10.3 mg/dL PROTEIN, TOTAL 7.3 6.1-8.1 g/dL ALBUMIN 4.8 3.6-5.1 g/dL GLOBULIN 2.5 1.9-3.7 g/dL (calc) ALBUMIN/GLOBULIN RATIO 1.9 1.0-2.5 (calc) BILIRUBIN, TOTAL 0.8 0.2-1.2 mg/dL ALKALINE PHOSPHATASE 46 35-144 U/L AST 21 10-35 U/L ALT 26 9-46 U/L CBC (INCLUDES DIFF/PLT) (639 9) Reviewed date:07/17/2024 11:58:09 AM Interpretation: Performing Lab:KS, [employer] [facility]-Dagprs11056 Bartolo [facility], IfzxsxOU[address] Cecilio Brooks MD Notes/Report: FASTING:YES FASTING: YES WHITE BLOOD CELL COUNT 5.6 3.8-10.8 Thousand/ uL RED BLOOD CELL COUNT 5.40 4.20-5.80 Million/uL HEMOGLOBIN 16.6 13.2-17.1 g/dL HEMATOCRIT 48.9 38.5-50.0 % MCV 90.6 80.0-100.0 fL MCH 30.7 27.0-33.0 pg MCHC 33.9 32.0-36.0 g/dL For adults, a slight decrease in the calculated MCHC value (in the range of 30 to 32 g/dL) is most likely not clinically significant; however, it should be interpreted with caution in correlation with other red cell parameters and the patient's clinical condition. RDW 12.7 11.0-15.0 % PLATELET COUNT 240 140-400 Thousand/uL MPV 11.6 7.5-12.5 fL ABSOLUTE NEUTROPHILS 3013 3911-8300 cells/uL ABSOLUTE LYMPHOCYTES 3761 537-5219 cells/uL ABSOLUTE MONOCYTES 566 200-950 cells/uL ABSOLUTE EOSINOPHILS 202 15-500 cells/uL ABSOLUTE BASOPHILS 50 0-200 cells/uL NEUTROPHILS 53.8 LYMPHOCYTES 31.6 MONOCYTES 10.1 EOSINOPHILS 3.6 BASOPHILS 0.9 Reason For Referral No Information Medications Medication SIG (Take, Route, Frequency, Duration) Notes Start Date End Date Status Losartan Potassium-HCTZ 100-25 MG TAKE 1 TABLET BY MOUTH EVERY DAY FOR 30 DAYS for 90 Active Mounjaro 2.5 MG/0.5ML 2.5 mg Subcutaneou s weekly for 30 days 07/15/2024 10/13/2024 Active glipiZIDE ER 10 MG TAKE 1 TABLET BY KVNG TH EVERY DAY WITH BREAKFAST for 90 Active Rosuvastatin Calcium 20 MG TAKE 1 TABLET BY MOUTH EVERY DAY for 90 Active Social History Tobacco Use: Social History Observation Description Date Details (start date - stop date) Current Smoker NA - NA Tobacco Use/Smoking Question Answer Notes Tobacco use: nonsmoker Alcohol Screen (Audit-C) Question Answer Notes Did you have a drink containing alcohol in the p ast year? No Points 0 Interpretation Negative AUDIT-C (Standard) Question Answer Notes Did you [...] week (3 points) Points 5 Interpretation Positive Tobacco Control (Standard) Question Answer Notes Tobacco use: Current smoker How often do you smoke cigarettes? Every day How many cigarettes a day do you smoke? 6-10 How soon after you wake up d o you smoke your first cigarette? 6-30 minutes Are you interested in quitting? Thinking about q uitting Section Notes: He works on a [employer] at [facility] [employer]. He has stable housing and a vehicle. He denies tobacco, alcohol, or illicit drug use. He works on a [employer] at [employer]. He has stable housing and a vehicle. He denies tobacco, alcohol, or illicit drug use. He works on a [employer] at [employer]. He has stable housing and a vehicle. He denies tobacco, alcohol, or illicit drug use. He works on a [employer] at [employer]. He has stable housing and a vehicle. He denies tobacco, alcohol, or illicit drug use. He works on a [employer] at [employer] [employer]. He has stable housing and a vehicle. He denies tobacco or illicit drug use. He stopped drinking 3 weeks ago. Problems Problem Type SNOMED Code ICD Code Onset Dates Problem Status W/U Status Risk Notes Problem 53970225680651 Morbid (severe) obesity due to excess calories (E66.01) Active confirmed Problem 706242214 Mixed hyperlipidemia (E78.2) Active confirmed Problem 07751043 Essential (primary) hypertension (I10) Active confirmed Problem 309974761 Type 2 diabetes mellitus without complication, without long-term current use of insulin (E11.9) Active confirmed Problem 083612483 Body mass index [BMI] 40.0-44.9, adult (Z68.41) Active confirmed Vital Signs Heart Rate 89 /min 07/15/2024 Temperature 97.3 degrees Fahrenheit 07/15/2024 Respiratory Rate 20 /min 07/15/2024 Height-cm 167.64 cm 07/15/2024 Oximetry 95 % 07/15/2024 Blood pressure diastolic 90 mm Hg 07/15/2024 Weight-kg 123.74 kg 07/15/2024 Height 66 in 07/15/2024 Blood pressure systolic 130 mm Hg 07/15/2024 Weight 272.8 lbs 07/15/2024 BMI 44.03 kg/m2 07/15/2024 Procedures Procedure Date Ordered Date Performed Result Body Sit e ANNUAL DEPRESSION SCREENING 15 MIN 12/24/2023 N /A Encounters Encounter Location Date Provider Diagnosis [address] [id number] 09/24/2023 [facility] [place] Type 2 diabetes mellitus without complication, without long-term current use of insulin E11.9 ; Essential (primary) hypertension I10 ; Mixed hyperlipidemia E78.2 ; Morbid (severe) obesity due to excess calories E66.01 and Body mass index [BMI] 40.0-44.9, adult Z68.[address] [id number] 12/24/2023 [facility] [place] Type 2 diabetes mellitus without complication, without long-term current use of insulin E11.9 ; Essential (primary) hypertension I10 ; Mixed hyperlipidemia E78.2 ; Morbid (severe) obesity due to excess calories E66.01 and Encounter for screening for depression Z13.[address] [id number] 04/01/2024 [facility] [place] Type 2 diabetes mellitus without complication, without long-term current use of insulin E11.9 ; Essential (primary) hypertension I10 ; Mixed hyperlipidemia E78.2 and Morbid (severe) obesity due to excess calories E66.[address] [id number] 07/15/2024 [facility] [place] Annual physical exam Z00.00 ; Type 2 diabetes mellitus without complication, without long-term current use of insulin E11.9 ; Essential (primary) hypertension I10 ; Mixed hyperlipidemia E78.2 and Morbid (severe) obesity due to excess calories E66.[address] [id number] 09/01/[address] [id number] 09/25/2023 [facility] [address] [place], [place] [id number] 11/30/2023 [facility] [address] [place], [place] [id number] 12/11/2023 [facility] [address] [place], [place] [id number] 01/18/2024 [facility] [address] [place], [place] [id number] 02/02/2024 [facility] [address] [place], [place] [id number] 02/08/2024 [facility] [address] [place], [place] [id number] 02/08/2024 [facility] [address] [place], [place] [id number] 04/04/2024 [facility] [address] [place], [place] [id number] 08/10/2024 [facility] [place] Assessments Encounter Date Diagnosis (ICD Code) Assessment Notes Treatment Notes Treatment Clinical Notes Section Notes 09/24/2023 Essential (primary) hypertension (ICD-10 - I10) His blood pressure is improved, but still elevated. He is offered and declined an additional medication. He is advised on weight loss. 09/24/2023 Type 2 diabetes mellitus without complication, without long-term current use of insulin (ICD-10 - E11.9) The patient will continue the current therapy. He is opposed to additional medications unless absolutely necessary. The patient is advised on improved low calorie, low carbohydrate diet, and exercise with the goal of weight loss, blood pressure improvement, cholesterol improvement, and blood sugar improvement. Will check CBC, BMP, LFTs, Lipid panel, and HgbA1c. 12/24/2023 Essential (primary) hypertension (ICD-10 - I10) As above. His blood pressure is controlled on the current therapy. 12/24/2023 Type 2 diabetes mellitus without complication, without long-term current use of insulin (ICD-10 - E11.9) The patient will continue the farxiga and ozempic 1 mg dosing for now. He will call with any persistence of GI side effects. The patient is advised on improved low calorie, low carbohydrate diet, and exercise with the goal of weight loss, blood pressure improvement, cholesterol improvement, and blood sugar improvement. Will check CBC, BMP, LFTs, Lipid panel, and HgbA1c. 04/01/2024 Essential (primary) hypertension (ICD-10 - I10) As above. His blood pressure is improved, but still slightly elevated. He will continue the current therapy and is advised on compliance. He is offered and declined intensification and is encouraged to check his blood pressure at home and call with elevations. 04/01/2024 Type 2 diabetes mellitus without complication, without long-term current use of insulin (ICD-10 - E11.9) The patient will continue the current therapy for now and is advised on compliance. The patient is advised on improved low calorie, low carbohydrate diet, and exercise with the goal of weight loss, blood pressure improvement, cholesterol improvement, and blood sugar improvement. Will check CBC, BMP, LFTs, Lipid panel, and HgbA1c. Will adjust therapy based on his labs. 07/15/2024 Type 2 diabetes mellitus without complication, without long-term current use of insulin (ICD-10 - E11.9) As above. His diabetes remains poorly controlled and he was intolerant of metformin and ozempic. He will try mounjaro with a slow uptitration of doses. Will check a HgbA1c and urine microalbumin. 07/15/2024 Annual physical exam (ICD-10 - Z00.00) The patient will continue the current therapy and is advised on compliance. The patient is advised on improved low calorie, low carbohydrate diet, and exercise with the goal of weight loss, blood pressure improvement, cholesterol improvement, and blood sugar improvement. Will check CBC, BMP, LFTs, Lipid panel, TFTs, and PSA. 07/15/2024 Essential (primary) hypertension (ICD-10 - I10) His blood pressure remains slightly elevated. He will continue the current therapy and is advised on compliance. He is offered and declined intensification of therapy. He is advised on weight loss and exercise. 04/01/2024 Mixed hyperlipidemia (ICD-10 - E78.2) As above. He will continue the crestor. Will check a lipid panel. 12/24/2023 Mixed hyperlipidemia (ICD-10 - E78.2) As above. His cholesterol is controlled on the crestor. Will check a lipid panel. 09/24/2023 Mixed hyperlipidemia (ICD-10 - E78.2) As above. He will continue the statin. Will check a lipid panel. 12/24/2023 Morbid (severe) obesity due to excess calories (ICD-10 - E66.01) As above. 09/24/2023 Morbid (severe) obesity due to excess calories (ICD-10 - E66.01) As above. He is again offered and declined referral for a sleep study. 04/01/2024 Morbid (severe) obesity due to excess calories (ICD-10 - E66.01) As above. He is not ready to try Mounjaro yet to see if he could tolerate it. 07/15/2024 Mixed hyperlipidemia (ICD-10 - E78.2) As above. Will check a lipid panel. 07/15/2024 Morbid (severe) obesity due to excess calories (ICD-10 - E66.01) As above. 12/24/2023 Encounter for screening for depression (ICD-10 - Z13.31) As above. 09/24/2023 Body mass index [BMI] 40.0-44.9, adult (ICD-10 - Z68.41) As above. Plan Of Treatment Pending Test Test Name Order Date ANNUAL DEPRESSION SCREENING 15 MIN 06/25 ANNUAL DEPRESSION SCREENING 15 MIN 12/23 Next Appt Details Provider Name:GLORIA Negron, 10/14/2024 08:15:00 AM, [address] , [facility] [address], [place], [place], [id number], Insurance Providers Payer Name Payer Address Payer Phone Subscriber Number Group Number Insured Name Patient Relationship to Insured Coverage Start Date Coverage End Date [facility] [address] [address] [place], [place] [id number] Lion Arroyo Self - patient is the insured Medical (General) History Medical History History ICD Code Hypertension Morbid Obesity Diabetes Mellitus Type 2 Medical Noncompliance Hyperlipidemia Surgical History Surgery Date(Month/Year) Cryptorchisism s/p repair
--- OUTSIDE RECORDS SUMMARY | 2024-08-26 09:17 | XMS_ITS | Patient Health Record ---
Author Organization [facility] Address [address] [place] [address] Care Team Providers Care Electronic Warfare Officer Name Role Phone Reinaldo Kaplan Primary Care Provider Reason For Referral No Information Immunizations Vaccine Route Administration Date Status Comme nts zzFluvirin IM Intramuscular 04/08/2016 Administered Social History Tobacco Use: Social History Observation Description Date Details (start date - stop date) Never Smoker NA - NA Tobacco Use/Smoking Question Answer Notes Smoking Status: nonsmoker Problems Problem Type SNOMED Code ICD Code Onset Dates Problem Status W/U Status Risk Notes Problem [id number] Type 2 diabetes mellitus without complications (E11.9) Active confirmed Problem [id number] Obesity, unspecified (E66.9) Active confirmed Plan Of Treatment Pending Test Test Name Order Date Urinalysis, Routine 04/08/2016 Insurance Providers Payer Name Payer Address Payer Phone Subscriber Number Group Number Insured Name Patient Relationship to Insured Coverage Start Date Coverage End Date [facility] [address] [address] [place] [phone] [id number] Lion Sequeira Self - patient is the insured Medical (General) History Medical History History ICD Code Morbid Obesity HTN Diabetes Mellitus Type 2 Cryptorchidism s/p repair
== END 2024-08-26 09:27 | disposition home or self-care (01) ==
PROVIDERS: Emergency Provider Nurse Practitioner Family; PCP Internal Medicine Infectious Disease
DX: B02.9 Zoster without complications (principal); I10 Essential (primary) hypertension; E78.00 Pure hypercholesterolemia, unspecified; E11.9 Type 2 diabetes mellitus without complications
CPT/HCPCS: 99203; G0463